=== PATIENT | male | born 1945 | race Caucasian/White ===

== ENCOUNTER → 2023-06-13 14:56 | Outpatient (REF) | payer MEDICARE, OTHER, SELFPAY ==
[2023-06-13 15:49] LABS: % Basophils 0.7 % (0-2); % Eosinophils 3.6 % (0-6); % Immature Granulocytes 0.1 % (0-0.5); % Lymphocytes 17.5 % (20.5-51.1); % Monocytes 8.7 % (1.7-9.3); % Neutrophils 69.4 % (42.2-75.2); Absolute Basophils 0.1 10^3/uL (0-0.2); Absolute Eosinophils 0.2 10^3/uL (0-0.7); Absolute Lymphocytes 1.2 10^3/uL (1.2-3.4); Absolute Monocytes 0.6 10^3/uL (0.1-0.6); Absolute Neutrophils 4.7 10^3/uL (1.4-6.5); Hematocrit 41.9 % (39.0-52.0); Hemoglobin 14.2 g/dL (13.0-18.0); Mean Corp Hgb Conc. 33.9 g/dL (33.0-37.0); Mean Corpuscular Hgb 30.2 pg (27.0-31.0); Mean Corpuscular Volume 89.1 fL (80.0-94.0); Mean Platelet Volume 12.5 fL (7.4-10.4); Nucleated Red Blood Cells % 0 % (-); Platelet Count 153 10^3/uL (130-400); Red Cell Dist. Width 12.3 % (11.5-14.5); White Blood Cell Count 6.8 10^3/uL (4.8-10.8)
[2023-06-13 16:05] LABS: ALT (SGPT) 25 U/L (0-50); AST (SGOT) 35 U/L (17-59); Albumin 4.3 g/dl (3.5-5.0); Alkaline Phosphatase 87 U/L (38-126); Blood Urea Nitrogen 27 mg/dl (9-20); Calcium 9.6 mg/dl (8.4-10.2); Carbon Dioxide 26 mmol/L (22-30); Chloride 105 mmol/L (98-107); Glucose 91 mg/dl (70-99); Sodium 140 mmol/L (135-145); Total Bilirubin 0.8 mg/dl (0.2-1.3); Total Protein 6.9 g/dl (6.3-8.2); eGFR 52.09
[2023-06-13 16:10] LABS: Potassium 4.5 mmol/L (3.5-5.1)
[2023-06-13 16:21] LABS: Free T4 0.78 ng/dl (0.78-2.19); Vitamin D, 25-OH*** 36.1 ng/mL (30-80)
[2023-06-13 17:03] LABS: Free T3 3.91 pg/ml (2.77-5.27)
[2023-06-13 17:17] LABS: PSA, Total - Screen 5.98 ng/ml (0.0-4.0)
[2023-06-16 05:01] LABS: IGF-1 Z Score Calculation 1.6; Insulin-like Growth Factor I 200 ng/mL (22-212)
[2023-06-16 06:28] LABS: DHEA Sulfate 97 ug/dL (16-123)
[2023-06-16 06:29] LABS: % Free Testosterone 1.1 % (1.6-2.9); Free Testosterone 67 pg/mL (47-244); Sex Hormone Binding Globulin 74 nmol/L (19-76); Total Testosterone 586 ng/dL (300-720)
== END ==
LOC: REG 14:56
PROVIDERS: ATTENDING PHYSICIAN Family Medicine Sports Medicine; FAMILY PHYSICIAN Family Medicine
DX: E29.1 Testicular hypofunction (principal); R53.83 Other fatigue; E55.9 Vitamin D deficiency, unspecified; Z12.5 Encounter for screening for malignant neoplasm of prostate
CPT/HCPCS: 36415; 80053; 82306; 82627; 84270; 84305; 84402; 84403; 84439; 84443; 84481; 85025; G0103

== ENCOUNTER → 2023-08-03 15:21 | Outpatient (REF) | payer MEDICARE, OTHER, SELFPAY ==
[2023-08-03 16:12] LABS: % Basophils 0.7 % (0-2); % Eosinophils 3.6 % (0-6); % Immature Granulocytes 0.2 % (0-0.5); % Lymphocytes 19.8 % (20.5-51.1); % Neutrophils 63.7 % (42.2-75.2); Absolute Eosinophils 0.2 10^3/uL (0-0.7); Absolute Lymphocytes 1.1 10^3/uL (1.2-3.4); Absolute Monocytes 0.7 10^3/uL (0.1-0.6); Absolute Neutrophils 3.5 10^3/uL (1.4-6.5); Hematocrit 46.1 % (39.0-52.0); Hemoglobin 14.7 g/dL (13.0-18.0); Mean Corp Hgb Conc. 31.9 g/dL (33.0-37.0); Mean Corpuscular Hgb 29.9 pg (27.0-31.0); Mean Corpuscular Volume 93.7 fL (80.0-94.0); Mean Platelet Volume 12.8 fL (7.4-10.4); Nucleated Red Blood Cells % 0 % (-); Platelet Count 145 10^3/uL (130-400); Red Blood Cell Count 4.92 10^6/uL (4.70-6.10); Red Cell Dist. Width 13.3 % (11.5-14.5); White Blood Cell Count 5.5 10^3/uL (4.8-10.8)
[2023-08-03 16:27] LABS: ALT (SGPT) 20 U/L (0-50); AST (SGOT) 32 U/L (17-59); Albumin 3.9 g/dl (3.5-5.0); Alkaline Phosphatase 82 U/L (38-126); Blood Urea Nitrogen 20 mg/dl (9-20); Calcium 9.3 mg/dl (8.4-10.2); Carbon Dioxide 28 mmol/L (22-30); Chloride 106 mmol/L (98-107); Glucose 111 mg/dl (70-99); Potassium 4.7 mmol/L (3.5-5.1); Sodium 141 mmol/L (135-145); Total Protein 6.5 g/dl (6.3-8.2); eGFR 56.93
[2023-08-03 16:44] LABS: Free T3 4.27 pg/ml (2.77-5.27); Free T4 0.84 ng/dl (0.78-2.19)
[2023-08-03 16:57] LABS: PSA, Total - Screen 7.33 ng/ml (0.0-4.0); TSH 1.15 uIU/ml (0.47-4.68)
[2023-08-05 15:38] LABS: Estriol <0.20 ng/mL
[2023-08-05 18:35] LABS: % Free Testosterone 1.3 % (1.6-2.9); Free Testosterone 196 pg/mL (47-244); Sex Hormone Binding Globulin 80 nmol/L (19-76); Total Testosterone 1480 ng/dL (300-720)
[2023-08-05 22:58] LABS: DHEA Sulfate 131 ug/dL (16-123)
== END ==
LOC: REG 15:21
PROVIDERS: ATTENDING PHYSICIAN Family Medicine Sports Medicine; FAMILY PHYSICIAN Family Medicine
DX: E29.1 Testicular hypofunction (principal); R53.83 Other fatigue; Z12.5 Encounter for screening for malignant neoplasm of prostate
CPT/HCPCS: 36415; 80053; 82627; 82677; 84270; 84402; 84403; 84439; 84443; 84481; 85025; G0103

== ENCOUNTER → 2023-08-15 16:44 | Outpatient (REF) | payer MEDICARE, OTHER, SELFPAY | LOC: RAD 16:44 | PROVIDERS: ATTENDING PHYSICIAN Family Medicine | DX: J45.40 Moderate persistent asthma, uncomplicated (principal); R05.1 Acute cough | CPT/HCPCS: 71046 ==

== ENCOUNTER → 2023-11-12 11:20 | Outpatient (REF) | payer MEDICARE, OTHER, SELFPAY ==
[2023-11-12 12:30] LABS: % Basophils 0.8 % (0-2); % Eosinophils 3.6 % (0-6); % Immature Granulocytes 0.2 % (0-0.5); % Monocytes 9.4 % (1.7-9.3); Absolute Basophils 0.1 10^3/uL (0-0.2); Absolute Eosinophils 0.2 10^3/uL (0-0.7); Absolute Lymphocytes 1.1 10^3/uL (1.2-3.4); Absolute Monocytes 0.6 10^3/uL (0.1-0.6); Absolute Neutrophils 4.1 10^3/uL (1.4-6.5); Hematocrit 49.2 % (39.0-52.0); Hemoglobin 16.4 g/dL (13.0-18.0); Mean Corp Hgb Conc. 33.3 g/dL (33.0-37.0); Mean Corpuscular Hgb 30.3 pg (27.0-31.0); Mean Corpuscular Volume 90.9 fL (80.0-94.0); Mean Platelet Volume 12.9 fL (7.4-10.4); Nucleated Red Blood Cells % 0 % (-); Platelet Count 138 10^3/uL (130-400); Red Blood Cell Count 5.41 10^6/uL (4.70-6.10); White Blood Cell Count 6.1 10^3/uL (4.8-10.8)
[2023-11-12 12:57] LABS: ALT (SGPT) 16 U/L (0-50); AST (SGOT) 29 U/L (17-59); Alkaline Phosphatase 76 U/L (38-126); Blood Urea Nitrogen 26 mg/dl (9-20); Calcium 9.6 mg/dl (8.4-10.2); Carbon Dioxide 25 mmol/L (22-30); Chloride 105 mmol/L (98-107); Glucose 90 mg/dl (70-99); Potassium 4.6 mmol/L (3.5-5.1); Sodium 143 mmol/L (135-145); Total Bilirubin 1.1 mg/dl (0.2-1.3); Total Protein 6.6 g/dl (6.3-8.2); eGFR 56.93
[2023-11-12 13:15] LABS: Free T3 4.09 pg/ml (2.77-5.27); Vitamin D, 25-OH*** 39.9 ng/mL (30-80)
[2023-11-12 13:28] LABS: PSA, Total - Screen 6.87 ng/ml (0.0-4.0); TSH Reflex To Free T4 0.97 uIU/ml (0.47-4.68)
[2023-11-14 21:52] LABS: DHEA Sulfate 135 ug/dL (16-123)
[2023-11-14 21:53] LABS: % Free Testosterone 1.1 % (1.6-2.9); Free Testosterone 41 pg/mL (47-244); Sex Hormone Binding Globulin 70 nmol/L (19-76); Total Testosterone 362 ng/dL (300-720)
[2023-11-15 03:55] LABS: IGF-1 Z Score Calculation 1.3; Insulin-like Growth Factor I 175 ng/mL (21-204)
== END ==
LOC: REG 11:20
PROVIDERS: ATTENDING PHYSICIAN Family Medicine Sports Medicine; FAMILY PHYSICIAN Family Medicine
DX: E29.1 Testicular hypofunction (principal); R53.83 Other fatigue; E55.9 Vitamin D deficiency, unspecified; Z12.5 Encounter for screening for malignant neoplasm of prostate
CPT/HCPCS: 36415; 80053; 82306; 82627; 84270; 84305; 84402; 84403; 84443; 84481; 85025; G0103

== ENCOUNTER → 2024-02-10 13:46 | Outpatient (REF) | payer MEDICARE, OTHER, SELFPAY ==
[2024-02-10 17:21] LABS: % Basophils 0.9 % (0-2); % Eosinophils 3.1 % (0-6); % Immature Granulocytes 1.3 % (0-0.5); % Lymphocytes 18.2 % (20.5-51.1); % Monocytes 13.1 % (1.7-9.3); % Neutrophils 63.4 % (42.2-75.2); Absolute Basophils 0.1 10^3/uL (0-0.2); Absolute Eosinophils 0.2 10^3/uL (0-0.7); Absolute Immature Granulocytes 0.1 10^3/uL (0-0.05); Absolute Monocytes 0.7 10^3/uL (0.1-0.6); Absolute Neutrophils 3.5 10^3/uL (1.4-6.5); Hematocrit 51.1 % (39.0-52.0); Hemoglobin 16.7 g/dL (13.0-18.0); Mean Corp Hgb Conc. 32.7 g/dL (33.0-37.0); Mean Corpuscular Hgb 30.2 pg (27.0-31.0); Mean Corpuscular Volume 92.4 fL (80.0-94.0); Nucleated Red Blood Cells % 0 % (-); Platelet Count 145 10^3/uL (130-400); Red Blood Cell Count 5.53 10^6/uL (4.70-6.10); Red Cell Dist. Width 13.5 % (11.5-14.5); White Blood Cell Count 5.5 10^3/uL (4.8-10.8)
[2024-02-13 02:44] LABS: % Free Testosterone 1.3 % (1.6-2.9); Free Testosterone 107 pg/mL (47-244); Sex Hormone Binding Globulin 69 nmol/L (19-76); Testosterone, Bioavailable 293 ng/dL (131-682); Total Testosterone 833 ng/dL (300-720)
== END ==
LOC: REG 13:46
PROVIDERS: ATTENDING PHYSICIAN Family Medicine Sports Medicine; FAMILY PHYSICIAN Family Medicine
DX: E29.1 Testicular hypofunction (principal)
CPT/HCPCS: 36415; 84270; 84402; 84403; 85025

== ENCOUNTER → 2024-04-23 10:29 | Outpatient (REF) | payer MEDICARE, OTHER, SELFPAY ==
[2024-04-23 11:57] LABS: Hematocrit 49.8 % (39.0-52.0); Hemoglobin 16.6 g/dL (13.0-18.0); Mean Corp Hgb Conc. 33.3 g/dL (33.0-37.0); Mean Corpuscular Hgb 30.5 pg (27.0-31.0); Mean Corpuscular Volume 91.4 fL (80.0-94.0); Mean Platelet Volume 12.8 fL (7.4-10.4); Platelet Count 151 10^3/uL (130-400); Red Blood Cell Count 5.45 10^6/uL (4.70-6.10); Red Cell Dist. Width 12.3 % (11.5-14.5); White Blood Cell Count 10.6 10^3/uL (4.8-10.8)
[2024-04-23 12:59] LABS: ALT (SGPT) 14 U/L (0-50); AST (SGOT) 24 U/L (17-59); Albumin 4.7 g/dl (3.5-5.0); Alkaline Phosphatase 103 U/L (38-126); Blood Urea Nitrogen 27 mg/dl (9-20); Calcium 9.8 mg/dl (8.4-10.2); Carbon Dioxide 28 mmol/L (22-30); Chloride 101 mmol/L (98-107); Glucose 96 mg/dl (70-99); HDL Cholesterol 67 mg/dl; LDL Cholesterol, Calculated 65 mg/dl; Potassium 4.8 mmol/L (3.5-5.1); Sodium 140 mmol/L (135-145); Total Bilirubin 1.6 mg/dl (0.2-1.3); Total Cholesterol 143 mg/dl (50-199); Total Protein 7.5 g/dl (6.3-8.2); Triglyceride 56 mg/dl (10-149); Very Low Density Lipoprotein 11 mg/dl (0-30); eGFR 51.77
[2024-04-23 13:25] LABS: PSA, Total - Screen 8.32 ng/ml (0.0-4.0); TSH 1.21 uIU/ml (0.47-4.68)
== END ==
LOC: REG 10:29
PROVIDERS: ATTENDING PHYSICIAN Family Medicine
DX: R05.3 Chronic cough (principal); R06.2 Wheezing; I25.10 Atherosclerotic heart disease of native coronary artery without angina pectoris; I10 Essential (primary) hypertension; E78.2 Mixed hyperlipidemia; J45.40 Moderate persistent asthma, uncomplicated; N52.9 Male erectile dysfunction, unspecified; R97.20 Elevated prostate specific antigen [PSA]; Z12.5 Encounter for screening for malignant neoplasm of prostate
CPT/HCPCS: 36415; 80053; 80061; 84443; 85027; G0103

== ENCOUNTER → 2024-04-30 13:54 | Outpatient (REF) | payer MEDICARE, OTHER, SELFPAY | LOC: RAD 13:54 | PROVIDERS: ATTENDING PHYSICIAN Family Medicine | DX: R05.3 Chronic cough (principal); R06.2 Wheezing | CPT/HCPCS: 71270; Q9967 ==

== ENCOUNTER 2024-09-15 21:18 | Inpatient (IN) | payer MEDICARE, OTHER, SELFPAY ==
[2024-09-15 13:33] VITALS: BP 154/73
[2024-09-15 13:57] LABS: Urine Character Clear (Clear)
[2024-09-15 14:02] LABS: Hematocrit 44.5 % (39.0-52.0); Hemoglobin 15.2 g/dL (13.0-18.0); Mean Corp Hgb Conc. 34.2 g/dL (33.0-37.0); Mean Corpuscular Volume 88.1 fL (80.0-94.0); Nucleated Red Blood Cells % 0 % (-); Red Cell Dist. Width 13.3 % (11.5-14.5)
[2024-09-15 14:16] LABS: ALT (SGPT) 61 U/L (0-50); AST (SGOT) 51 U/L (17-59); Albumin 4.1 g/dl (3.5-5.0); Alkaline Phosphatase 89 U/L (38-126); Blood Urea Nitrogen 28 mg/dl (9-20); Calcium 9.0 mg/dl (8.4-10.2); Carbon Dioxide 27 mmol/L (22-30); Chloride 103 mmol/L (98-107); Glucose 122 mg/dl (70-99); Lipase 286 U/L (23-300); Potassium 4.5 mmol/L (3.5-5.1); Sodium 135 mmol/L (135-145); Total Protein 7.0 g/dl (6.3-8.2); eGFR > 60.00
[2024-09-15 14:28] LABS: Platelet Count 47 10^3/uL (130-400); Urine Red Blood Cell 0-2 /HPF (0-2); Urine White Cell 0-2 /HPF (0-5)
[2024-09-15 14:29] LABS: Troponin I < 0.012 ng/ml
[2024-09-15 14:41] VITALS: BMI 22.4
--- NOTE | 2024-09-15 15:37 | ED.GENMED ---
History of Present Illness
<DO Andrey Savage Filed: 09/16/24 14:25>
General
Chief Complaint: Chest Pain
Source: patient
Time Seen by Provider: 09/15/24 14:38
History of Present Illness
History of Present Illness:
78-year-old male presents to the emergency room for evaluation of intermittent upper abdominal pain, nausea, belching, malaise and fever. Symptoms began 2 to 3 days ago. Patient has been able to do his normal daily activities which includes
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 He seemed to feel much worse in the evenings and at night. He has severe nausea at times. Patient denies any previous abdominal surgeries. He does not drink alcohol.
Past History
<DO Andrey Savage Filed: 09/16/24 14:25>
Past History
ED Past Medical History: CAD, GERD, HTN and Hypercholesterolemia; Negative IDDM or NIDDM
ED Past Surgical History: Cardiac (CABG 2011)
Social History
Tobacco: Non-smoker
Alcohol: None
Drug: None
Personal:
Living: with family
Employment: Retired
Family History
Family History: Other (Noncontributory)
Phy Exam
<DO Andrey Savage Filed: 09/16/24 14:25>
Physical Exam
Physical Exam:
General: Awake, Alert, Oriented X3. No acute distress.
Vitals: Temperature 100.6 orally
Head: Atraumatic
Eyes: Pupils equal, EOMI
Throat: Airway intact, no exudates
Neck: Trachea midline
Lungs: Clear and equal b/l
Heart: Regular rate, no murmurs
Abd: Soft, no significant tenderness to palpation, No pulsatile mass
Neuro: Nonfocal
Skin: Warm, dry, no rash
Extremities: pulses equal b/l, no edema
Scores
<Arnulfo Musa, DO - Last Filed: 09/15/24 21:36>
Heart Score for Chest Pain Patients
STEMI patient?: Not applicable
Course
<Jose Luevano, DO - Last Filed: 09/16/24 14:25>
Orders/Labs/Results
Orders:
Orders
09/15/24 13:30
EKG [Electrocardiogram (*1)] Urgent
Reason for Study: Chest Pain
09/15/24 13:31
EKG- Treatment ONCE
09/15/24 13:46
Complete Blood Count/With Diff Urgent
Comprehensive Metabolic Panel Urgent
Lipase Urgent
Troponin I Urgent
Urinalysis Reflex To Culture Urgent
Date Specimen was Collected: 09/15/24
Time Specimen was Collected: 13:37
Urine Microscopic Reflex Cult Urgent
09/15/24 15:36
US Abdomen Complete/Upper Urgent
Comment:
Reason For Exam: upper abd pain, elevated bili, fever
09/15/24 15:37
Acetaminophen [Tylenol] 1,000 mg PO NOW STA
09/15/24 15:40
0.9% Sodium Chloride 500 ml [Nss] 500 ml IV BOLUS
09/15/24 20:12
LevoFLOXacin 500 MG/100 ML [Levaquin] 500 mg in 100 ml IV NOW
MetroNIDAZOLE 500 MG/100 ML [Flagyl 500 mg] 100 ml IV NOW
09/15/24 21:02
Admit/Transfer Patient As Directed
Co-Sign Provider:
Level of Care: Inpatient admission
Assign to:: Telemetry
Physician / Group: Aidan
Diagnosis: Fever
Reason for Telemetry: Chest Pain syndromes
Date to Stop Telemetry: 09/17/24
Time to Stop Telemetry: 11:00
Reason for Hospitalization: Fever
Expected length of stay greater than two midnights?: Yes
ELOS- Estimated Length of Stay in days: 3
I certify the patient meets the requirements for IP care: Yes
PRN Pain Medication Management As Directed
May give lesser potent ordered pain med per pt: Yes
preference::
Protocol:: Medication orders for pain may be administered in a
manner that supports deferring to patient preference
when the pt is:
- Requesting an ordered lesser potent pain medication.
Least to most potent pain medications are defined
as: acetaminophen < NSAID < tramadol < opioids
(morphine, oxycodone, hydromorphone).
- Requesting a lesser dose of the same medication IF
ORDERED.
- Requesting a less intrusive route of administration
if both routes are prescribed by the provider (PO <
IV).
09/15/24 21:03
Code Status As Directed
Resuscitation Status: Full Code
09/15/24 21:09
CXR2 [CR Chest - 2 Views ] Urgent
Comment:
Reason For Exam: Fever, Chest pain
09/15/24 21:12
Blood Culture Q30M
MARY Source: Blood/Venous
Specimen Description:
Blood Culture Q30M
MARY Source: Blood/Venous
Specimen Description:
Blood Parasites Urgent
MARY Source: Blood/Venous
Specimen Description:
09/15/24 22:08
Ondansetron Injectable [Zofran] 4 mg IV Q6HPRN PRN
09/15/24 22:15
Acetaminophen [Tylenol] 650 mg PO Q4HPRN PRN
09/15/24 23:03
Troponin I Q6H
0.9% Sodium Chloride 1000 ml [Nss] 1,000 ml IV 80 mls/hr
09/15/24 23:03
TSH Reflex To Free T4 Routine
Activity As Directed
Activity Level: Ambulate
Bladder Scan As Directed
Follow Bladder Retention/Intermittent Cath Algorithm?: Yes
PRN if no void in __ hours: 6
Frequency: Per Retention Algorithm
If Bladder Scan Result >: 400
then:: Straight cath
EKG with chest pain [ECG as needed] As Directed
ECG as needed for:: Chest Pain
I/O [Intake/ Output] As Directed
Frequency: Per unit guidelines
Pneumatic Compression Sleeves As Directed
Type: Knee high
Straight Cath As Directed
Frequency: Per Retention Algorithm
Additional Instructions: straight cath as needed per acute urinary retention algorithm for 24 hrs
Additional Instructions: for bladder scan greater than 400 mL
Vital Signs As Directed
Frequency: Per unit guidelines
Weight As Directed
Frequency: Daily
Oxygen Therapy [O2 Therapy] [RESP] Routine
Titrate/Wean O2 to maintain O2 sat greater than (%): 94
DX Deep Vein Thrombosis Video Routine
09/16/24 04:13
Cardiovascular Evaluation IN AM
Complete Blood Count/No Diff IN AM
09/16/24 06:00
EKG [Electrocardiogram (*1)] IN AM
Reason for Study: Chest Pain
09/16/24 08:00
Amlodipine [Norvasc] 10 mg PO DAILY
Aspirin Low Dose EC [Aspir Low (Enteric Coated)] 81 mg PO DAILY
Pantoprazole [Protonix] 40 mg PO DAILY
09/16/24 10:01
Troponin I Q6H
09/16/24 16:15
Troponin I Q6H
09/17/24 11:00
DC Protocol for Telemetry ONCE
Abnormal Lab Results
09/15/24
13:46
Plt Count 47 L 10^3/uL
(130-400)
MPV 12.3 H fL
(7.4-10.4)
Absolute Lymphs (auto) 0.6 L 10^3/uL
(1.2-3.4)
Absolute Monos (auto) 0.9 H 10^3/uL
(0.1-0.6)
Lymphocytes % 11.2 L %
(20.5-51.1)
Monocytes % 16.7 H %
(1.7-9.3)
BUN 28 H mg/dl
(9-20)
Glucose 122 H mg/dl
(70-99)
Total Bilirubin 2.9 H mg/dl
(0.2-1.3)
ALT 61 H U/L
(0-50)
Urine Urobilinogen 2+ A
(Neg - 1+)
Urine Albumin (Reflex) 3+ A
(Neg - Trace)
09/15/24 13:46
09/15/24 13:46
Vital Signs
Initial and Last Documented VS:
Initial Vital Signs
Temp Pulse Resp BP Pulse Ox
99.3 F 84 16 154/73 98
09/15/24 13:33 09/15/24 13:33 09/15/24 13:33 09/15/24 13:33 09/15/24 13:33
Last Documented Vital Signs
Temp Pulse Resp BP Pulse Ox
99.2 F 79 16 144/74 96
09/16/24 14:14 09/16/24 14:14 09/16/24 14:14 09/16/24 14:14 09/16/24 14:14
<Arnulfo Musa, DO - Last Filed: 09/15/24 21:36>
Orders/Labs/Results
Orders:
Orders
09/15/24 13:30
EKG [Electrocardiogram (*1)] Urgent
Reason for Study: Chest Pain
09/15/24 13:31
EKG- Treatment ONCE
09/15/24 13:46
Complete Blood Count/With Diff Urgent
Comprehensive Metabolic Panel Urgent
Lipase Urgent
Troponin I Urgent
Urinalysis Reflex To Culture Urgent
Date Specimen was Collected: 09/15/24
Time Specimen was Collected: 13:37
Urine Microscopic Reflex Cult Urgent
09/15/24 15:36
US Abdomen Complete/Upper Urgent
Comment:
Reason For Exam: upper abd pain, elevated bili, fever
09/15/24 15:37
Acetaminophen [Tylenol] 1,000 mg PO NOW STA
09/15/24 15:40
0.9% Sodium Chloride 500 ml [Nss] 500 ml IV BOLUS
09/15/24 20:12
LevoFLOXacin 500 MG/100 ML [Levaquin] 500 mg in 100 ml IV NOW
MetroNIDAZOLE 500 MG/100 ML [Flagyl 500 mg] 100 ml IV NOW
09/15/24 21:02
Admit/Transfer Patient As Directed
Co-Sign Provider:
Level of Care: Inpatient admission
Assign to:: Telemetry
Physician / Group: Aidan
Diagnosis: Fever
Reason for Telemetry: Chest Pain syndromes
Date to Stop Telemetry: 09/17/24
Time to Stop Telemetry: 11:00
Reason for Hospitalization: Fever
Expected length of stay greater than two midnights?: Yes
ELOS- Estimated Length of Stay in days: 3
I certify the patient meets the requirements for IP care: Yes
PRN Pain Medication Management As Directed
May give lesser potent ordered pain med per pt: Yes
preference::
Protocol:: Medication orders for pain may be administered in a
manner that supports deferring to patient preference
when the pt is:
- Requesting an ordered lesser potent pain medication.
Least to most potent pain medications are defined
as: acetaminophen < NSAID < tramadol < opioids
(morphine, oxycodone, hydromorphone).
- Requesting a lesser dose of the same medication IF
ORDERED.
- Requesting a less intrusive route of administration
if both routes are prescribed by the provider (PO <
IV).
09/15/24 21:03
Code Status As Directed
Resuscitation Status: Full Code
09/15/24 21:09
CXR2 [CR Chest - 2 Views ] Urgent
Comment:
Reason For Exam: Fever, Chest pain
09/15/24 21:12
Blood Culture Q30M
MARY Source: Blood/Venous
Specimen Description:
Blood Culture Q30M
MARY Source: Blood/Venous
Specimen Description:
Blood Parasites Urgent
MARY Source: Blood/Venous
Specimen Description:
09/15/24 22:08
Ondansetron Injectable [Zofran] 4 mg IV Q6HPRN PRN
09/15/24 22:15
Acetaminophen [Tylenol] 650 mg PO Q4HPRN PRN
09/15/24 23:03
Troponin I Q6H
0.9% Sodium Chloride 1000 ml [Nss] 1,000 ml IV 80 mls/hr
09/15/24 23:03
TSH Reflex To Free T4 Routine
Activity As Directed
Activity Level: Ambulate
Bladder Scan As Directed
Follow Bladder Retention/Intermittent Cath Algorithm?: Yes
PRN if no void in __ hours: 6
Frequency: Per Retention Algorithm
If Bladder Scan Result >: 400
then:: Straight cath
EKG with chest pain [ECG as needed] As Directed
ECG as needed for:: Chest Pain
I/O [Intake/ Output] As Directed
Frequency: Per unit guidelines
Pneumatic Compression Sleeves As Directed
Type: Knee high
Straight Cath As Directed
Frequency: Per Retention Algorithm
Additional Instructions: straight cath as needed per acute urinary retention algorithm for 24 hrs
Additional Instructions: for bladder scan greater than 400 mL
Vital Signs As Directed
Frequency: Per unit guidelines
Weight As Directed
Frequency: Daily
Oxygen Therapy [O2 Therapy] [RESP] Routine
Titrate/Wean O2 to maintain O2 sat greater than (%): 94
DX Deep Vein Thrombosis Video Routine
09/16/24 04:13
Cardiovascular Evaluation IN AM
Complete Blood Count/No Diff IN AM
09/16/24 06:00
EKG [Electrocardiogram (*1)] IN AM
Reason for Study: Chest Pain
09/16/24 08:00
Amlodipine [Norvasc] 10 mg PO DAILY
Aspirin Low Dose EC [Aspir Low (Enteric Coated)] 81 mg PO DAILY
Pantoprazole [Protonix] 40 mg PO DAILY
09/16/24 10:01
Troponin I Q6H
09/16/24 16:15
Troponin I Q6H
09/17/24 11:00
DC Protocol for Telemetry ONCE
Abnormal Lab Results
09/15/24
13:46
Plt Count 47 L 10^3/uL
(130-400)
MPV 12.3 H fL
(7.4-10.4)
Absolute Lymphs (auto) 0.6 L 10^3/uL
(1.2-3.4)
Absolute Monos (auto) 0.9 H 10^3/uL
(0.1-0.6)
Lymphocytes % 11.2 L %
(20.5-51.1)
Monocytes % 16.7 H %
(1.7-9.3)
BUN 28 H mg/dl
(9-20)
Glucose 122 H mg/dl
(70-99)
Total Bilirubin 2.9 H mg/dl
(0.2-1.3)
ALT 61 H U/L
(0-50)
Urine Urobilinogen 2+ A
(Neg - 1+)
Urine Albumin (Reflex) 3+ A
(Neg - Trace)
09/15/24 13:46
09/15/24 13:46
Vital Signs
Initial and Last Documented VS:
Initial Vital Signs
Temp Pulse Resp BP Pulse Ox
99.3 F 84 16 154/73 98
09/15/24 13:33 09/15/24 13:33 09/15/24 13:33 09/15/24 13:33 09/15/24 13:33
Last Documented Vital Signs
Temp Pulse Resp BP Pulse Ox
99.2 F 79 16 144/74 96
09/16/24 14:14 09/16/24 14:14 09/16/24 14:14 09/16/24 14:14 09/16/24 14:14
<Arnulfo Musa, DO - Last Filed: 09/15/24 21:36>
MDM/Problems Addressed
Differential Diagnosis Includes:
Pancreatitis, common bile duct stone
MDM/Problems Addressed:
78-year-old male received signout in anticipation of abdominal ultrasound. Bilirubin elevated, patient with fevers. Dilated common bile duct on ultrasound. Levaquin and Flagyl given, admit for further workup to possibly include MRCP/ERCP.
Patient stable at this time.
<Jose Luevano DO - Last Filed: 09/16/24 14:25>
*Pulse Oximetry
SaO2: 94
Oxygen Mode of Delivery: Room air
Patient hypoxic: no
*EKG
Interpreted by ED Provider?: Yes
Heart Rate: 76
Rate: normal
Rhythm: sinus
[place]: normal axis
Interval: normal interval
QRS Pattern: right bundle branch block (paritial)
Ischemia: no ischemia
<Arnulfo Musa, DO - Last Filed: 09/15/24 21:36>
*Radiology
Radiology exam reviewed: radiology read reviewed (Ultrasound shows dilated common bile duct)
*Critical Care Note
Total Time (30-74mins, 75-104mins- exclusive of procedures): Not Applicable
ED Attending Note
<Jose Luevano DO - Last Filed: 09/16/24 14:25>
-
Portions of this chart may have been created with voice recognition software.� Occasional wrong word or��sound alike� substitutions may have occurred due to the inherent limitations of voice recognition software.
Discharge Plan
Departure
Patient Disposition: Admit
Date of Disposition: 09/15/24
Time of Disposition: 20:25
Admit to: Med/Surg
Presentation/result/management discussed w/ accepting MD/DO: Hospitalist
Patient with high blood pressure during this ER visit?: Yes
Condition: Fair
Discharge Problem:
Fever, Common bile duct dilatation, Hyperbilirubinemia
Interventions
Interventions:
*Risk Screen - Suicide Last Done: 09/15/24 13:33
*General Assessment Last Done: 09/15/24 16:43
*Neglect/Abuse Screening Last Done: 09/15/24 13:33
*ED- Fall Risk Assessment Last Done: 09/15/24 16:43
*ED COVID-19 Vaccine History Last Done: 09/15/24 23:11
*Nursing Disposition Last Done: 09/15/24 23:03
ED- Cardiac Assessment Last Done: 09/15/24 14:49
Discharge Date and Time
Discharge Date/Time: 09/15/24 23:03
[2024-09-15] MEDS: TYLENOL 1000 MG PO (15:40)
[2024-09-15] MEDS: NSS 500 IV (15:50)
[2024-09-15] MEDS: LEVAQUIN 100 IV (20:54)
[2024-09-15] MEDS: FLAGYL 500 MG 100 IV (20:54)
--- NOTE | 2024-09-15 21:08 | HPS.HSE ---
Family Physician
-
Family Physician: Noah See
Chief Complaint
-
Fever, Chest Pain, Nausea
History of Present Illness
Patient is a 78y M with PMH significant for ASCVD and hypertension who presents to ED complaining of multiple complaints. Patient states that he has been having intermittent fevers at home - mostly at night. Temperature has been as high as
101.5. Patient also reports generalized abdominal discomfort associated with increased flatus, audible bowel sounds and mild constipation. He has had nausea, but no vomiting. He states that these symptoms have been occurring off-and-on for
several weeks. Tuesday evening he woke in the middle of the night with severe nausea. His gave him a Zofran and his symptoms improved. He was able to go to work the following day.
Last night, he again woke in the middle of the night. This time with sensation of 'an elephant sitting on my chest'.
Today he decided to present to the ED for further evaluation of these ongoing symptoms.
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
He denies any joint pains, rashes or skin lesions.
Note that patient has unreliable sense of time. It is unclear how long his current symptoms have been present though he states '3-4 weeks'.
He notes that he had a CT done here 'about 3 weeks ago'. This was done in April.
He states that he received a new cholesterol medication 'about 3-4 weeks ago'. This was started in June.
Medical History
Past Medical History
Past Medical History: Reports Other
Additional Past Medical History:
ASCVD
Hypertension
CKD III
GERD
Past Surgical History: Reports Other
Additional Past Surgical History:
CABG
PTCA with Stent
Social History
Tobacco: Non-smoker
Alcohol: None
Drug: None
Family History
Family History: Not pertinent
Allergies / Home Medications
Allergies reflects when Allergies were last updated in [facility].
Home Medications with original date entered in [facility]
Allergy/Medication List:
Allergies
Allergy/AdvReac Type Severity Reaction Status Date / Time
oxycodone HCl (From Percocet) Allergy hallucinating, Verified 09/15/24 13:36
paranoid
Penicillins Allergy Unknown Verified 09/15/24 13:36
Home Medications
aspirin 81 mg tablet,delayed release 81 mg PO DAILY Blood clot prevention/tx #30 tabs 04/03/21
atorvastatin 80 mg tablet 80 mg PO QPM #30 tabs 04/03/21
pantoprazole 40 mg tablet,delayed release 40 mg PO DAILY #30 tabs 04/03/21
coenzyme [id number] E 100 mg-100 unit capsule 1 cap PO DAILY 04/25/21
amlodipine 5 mg tablet 10 mg PO DAILY 09/15/24
ezetimibe 10 mg tablet 10 mg PO DAILY 09/15/24
tadalafil 5 mg tablet 5 mg PO DAILY PRN ED 09/15/24
Review of Systems
-
History Source: Patient
A 12 point ROS was completed and negative except as noted: Yes
Constitutional: Reports Fever and Fatigue; Denies Chills
EENT: Denies Sore Throat
Respiratory: Denies Cough or Trouble Breathing
Cardiac: Reports Chest Pain; Denies Palpitations or Syncope
Abdomen/GI: Reports Abdominal Pain, Nausea and Constipated; Denies Vomiting, Diarrhea, Bloody Stools or Black Stools
: Reports Dark Urine; Denies Dysuria or Frequency
Musculoskeletal: Denies Joint Pain, Muscle Pain or Edema
Neurological: Denies Dizzy or Headache
Psych: Denies Depression or Anxiety
Physical Exam
Vital Signs
Vital Signs
Temp Pulse Resp BP Pulse Ox
99.6 F 68 27 154/73 95
09/15/24 17:04 09/15/24 19:45 09/15/24 19:45 09/15/24 13:33 09/15/24 18:45
Physical Exam
General: Other (78y M in no acute distress.)
HEENT: Moist mucous membranes and PERRLA
Respiratory: Clear; No Wheezes, Rales or Rhonchi
Cardiac: S1/S2 and Regular Rhythm; No Murmur
GI: Soft, Non Tender, Non Distended and Normal Bowel Sounds
Musculoskeletal: No Clubbing, No Cyanosis and No Edema
Neuro: AO x 3
Laboratory Results
-
09/15/24 13:46
09/15/24 13:46
Laboratory Results
Total Bilirubin 2.9 mg/dl (0.2-1.3) H 09/15/24 13:46
AST 51 U/L (17-59) 09/15/24 13:46
ALT 61 U/L (0-50) H 09/15/24 13:46
Alkaline Phosphatase 89 U/L (38-126) 09/15/24 13:46
Troponin I < 0.012 ng/ml 09/15/24 13:46
Lipase 286 U/L (23-300) 09/15/24 13:46
Impression/Plan
-
A/P: 78y M with PMH significant for ASCVD and hypertension presents with several weeks of nausea, fevers, chest pains, etc.
Chest Pain
ASCVD
- Admit for further evaluation and treatment.
- Other symptoms aside, patient woke last PM with crushing substernal chest pain and 'elephant on my chest' feeling.
- EKG without evident acute ischemia. Initial troponin is undetectable.
- Pain-free at present.
- Monitor on telemetry.
- Follow serial troponin.
- Follow for any new / recurrent chest discomfort.
- Continue ASA.
- Cardiology evaluation if elevated troponin, recurrent chest pain, etc.
Febrile Illness
Thrombocytopenia
Abnormal LFTs
- Unclear etiology at present. Vague symptoms (nausea, audible bowel sounds / 'rumbling').
- No rash / myalgias, arthralgias , etc.
- US done in the ED with mild intra-hepatic duct dilation without CBD dilation, GB abnormality, etc.
- Levaquin / Flagyl given in the ED. Continue with cefepime / metronidazole for now - though source is unclear.
- With tick exposure and fever / thrombocytopenia - will check parasite smear.
- GI evaluation re: ductal dilation. ? MRCP.
- ID evaluation for additional recommendations.
Benign Hypertension
- Stable. Continue current med regimen with holding parameters.
CKD III
- Stable. Renal function is at / near known baseline.
- Follow for changes.
DVT Prophylaxis: SCDs
Code Status: Full
[2024-09-15] MEDS: ZOFRAN 4 MG IV (22:13)
[2024-09-15] MEDS: TYLENOL 650 MG PO (22:36)
[2024-09-15 23:00] VITALS: BP 147/73; BMI 22.2
[2024-09-16] MEDS: NSS 1000 IV ×2 (00:16→14:15)
[2024-09-16] MEDS: BENADRYL 25 MG PO (00:42)
[2024-09-16 03:10] VITALS: BP 129/67
[2024-09-16] MEDS: TYLENOL 650 MG PO ×4 (04:13→22:56)
[2024-09-16 04:35] LABS: Hematocrit 44.9 % (39.0-52.0); Hemoglobin 15.1 g/dL (13.0-18.0); Mean Corp Hgb Conc. 33.6 g/dL (33.0-37.0); Mean Corpuscular Volume 87.5 fL (80.0-94.0); Platelet Count 40 10^3/uL (130-400); Red Cell Dist. Width 13.2 % (11.5-14.5)
[2024-09-16 04:46] LABS: ALT (SGPT) 53 U/L (0-50); AST (SGOT) 42 U/L (17-59); Albumin 3.8 g/dl (3.5-5.0); Alkaline Phosphatase 81 U/L (38-126); Blood Urea Nitrogen 23 mg/dl (9-20); Calcium 8.9 mg/dl (8.4-10.2); Carbon Dioxide 27 mmol/L (22-30); Chloride 105 mmol/L (98-107); Estimated Creatinine Clearance 59 ml/min; Glucose 115 mg/dl (70-99); HDL Cholesterol 24 mg/dl; LDH 341 U/L (120-246); LDL Cholesterol, Calculated 43 mg/dl; Potassium 4.7 mmol/L (3.5-5.1); Sodium 138 mmol/L (135-145); Total Protein 6.7 g/dl (6.3-8.2); Very Low Density Lipoprotein 19 mg/dl (0-30); eGFR > 60.00
[2024-09-16 04:56] LABS: Troponin I 0.013 ng/ml
[2024-09-16] MEDS: STERILE WATER FOR INJECTION 10 ML IV (05:28)
[2024-09-16] MEDS: MAXIPIME 1000 MG IV (05:28)
[2024-09-16] MEDS: FLAGYL 500 MG 100 IV (05:29)
[2024-09-16 06:00] VITALS: BMI 22.1
[2024-09-16 07:24] VITALS: BP 142/105
--- NOTE | 2024-09-16 08:14 | PTCARENOTE ---
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 made aware.
[2024-09-16] MEDS: PROTONIX 40 MG PO (08:30)
[2024-09-16] MEDS: NORVASC 10 MG PO (08:30)
[2024-09-16] MEDS: ASPIR LOW (ENTERIC COATED) 81 MG PO (08:30)
--- NOTE | 2024-09-16 08:51 | CON.GI ---
Consultation
-
Date/Time Consultation Performed: 09/16/24
Performing Provider: Carlito Ji MD
Reason for Consultation: fever, abdominal pain
Medical History
Chief Complaint / HPI
Chief Complaint: fever, abdominal pain
History of Present Illness:
The patient is a 78-year-old male with past medical history as noted presents with fever and other complaints. For some time has been having intermittent fevers as well as general malaise, vague abdominal pains. 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 Usually he has no significant GI issues except chronic heartburn, well-controlled on PPI daily. He has seen a gastrology in the past but does not recall who, and is had endoscopies and colonoscopies which have been unremarkable.
On presentation he was found to have thrombocytopenia, mildly elevated LFTs, and ultrasound with mildly intrahepatic duct dilation. Blood cultures from the 12th did show Babesia species.
Past Medical History
Past Medical History: Other (Coronary artery disease, status post stent, status post CABG, hypertension, renal sufficiency, GERD, high cholesterol)
Past Surgical History: Other (CABG)
Social History
Tobacco: Non-Smoker
Alcohol: None
Family History
Family History: Reviewed & Not Pertinent
Allergies / Home Medications
Allergy/AdvReac Type Severity Reaction Status Date / Time
oxycodone HCl (From Percocet) Allergy hallucinating, Verified 09/15/24 13:36
paranoid
Penicillins Allergy Unknown Verified 09/15/24 13:36
�Medication �Instructions �Recorded
aspirin 81 mg tablet,delayed 81 mg PO DAILY Blood clot 04/03/21
release prevention/tx #30 tabs
atorvastatin 80 mg tablet 80 mg PO QPM #30 tabs 04/03/21
pantoprazole 40 mg tablet,delayed 40 mg PO DAILY #30 tabs 04/03/21
release
coenzyme [id number] E 100 mg-100 1 cap PO DAILY Supplement 04/25/21
unit capsule
amlodipine 5 mg tablet 10 mg PO DAILY Blood Pressure 09/15/24
ezetimibe 10 mg tablet 10 mg PO DAILY High Cholesterol 09/15/24
tadalafil 5 mg tablet 5 mg PO DAILY PRN ED 09/15/24
diphenhydramine HCl 25 mg capsule 25 mg PO HS PRN sleep 09/16/24
(Benadryl)
Review of Systems
-
All other systems: A 12 pt ROS was Negative except as stated above in HPI
Vital Signs
Temp Pulse Resp BP Pulse Ox
98 F 73 12 142/105 98
09/16/24 07:24 09/16/24 08:30 09/16/24 07:24 09/16/24 08:30 09/16/24 07:24
Physical Exam
Exam
General: NAD
HEENT: MMM, anicteric, no lymphadenopathy
Heart: Regular, no murmurs
Lungs: CTA bilaterally
Abdomen: normal bowel sounds, soft, no tenderness, no rebound or guarding, no masses, bruits or ascites
Extremeties: no edema
Skin: no rashes
Results
WBC 4.7 10^3/uL (4.8-10.8) L 09/16/24 04:13
Hgb 15.1 g/dL (13.0-18.0) 09/16/24 04:13
Hct 44.9 % (39.0-52.0) 09/16/24 04:13
MCV 87.5 fL (80.0-94.0) 09/16/24 04:13
Plt Count 40 10^3/uL (130-400) L 09/16/24 04:13
Absolute Neuts (auto) 3.9 10^3/uL (1.4-6.5) 09/15/24 13:46
Sodium 138 mmol/L (135-145) 09/16/24 04:13
Potassium 4.7 mmol/L (3.5-5.1) 09/16/24 04:13
Chloride 105 mmol/L (98-107) 09/16/24 04:13
Carbon Dioxide 27 mmol/L (22-30) 09/16/24 04:13
BUN 23 mg/dl (9-20) H 09/16/24 04:13
Creatinine 1.1 mg/dL (0.7-1.3) 09/16/24 04:13
Calcium 8.9 mg/dl (8.4-10.2) 09/16/24 04:13
Total Bilirubin 3.2 mg/dl (0.2-1.3) H 09/16/24 04:13
AST 42 U/L (17-59) 09/16/24 04:13
ALT 53 U/L (0-50) H 09/16/24 04:13
Alkaline Phosphatase 81 U/L (38-126) 09/16/24 04:13
Lipase 286 U/L (23-300) 09/15/24 13:46
Diagnostic Image Results:
US:
IMPRESSION:
Intrahepatic bile ducts appear to be mildly dilated, nonspecific. No extrahepatic ductal dilatation. No evidence for cholelithiasis.
CT chest 04/2024:
IMPRESSION:
Few small tree-in-bud nodular opacities in the lateral right upper lobe which may be on an inflammatory/infectious basis. Short-term follow-up Chest CT, perhaps in 3-6 months could be obtained.
Suspected large volume coronary artery calcifications.
No significant hilar/mediastinal lymphadenopathy.
Prior GI Procedures:
EGD:
Colonoscopy:
Assessment / Plan
-
1. 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
2. Dilated intrahepatic ducts: Mildly noted on ultrasound, likely incidental, likely not related to his mild elevation of LFTs and thrombocytopenia again related to Babesia. For completeness we will check cross-sectional imaging though other
etiologies such as cholangiocarcinoma seem very unlikely. He is very claustrophobic, and will check CT scan.
-
-
Thank you for consultation and allowing me to participate in the patient's care. Please call the [facility] physician during the after hours with any questions or concerns.
[2024-09-16] MEDS: ZITHROMAX 500 MG PO (09:21)
[2024-09-16] MEDS: MEPRON SUSPENSION 750 MG PO ×2 (09:21→20:04)
[2024-09-16] MEDS: OMNIPAQUE 50 ML PO (09:41)
--- NOTE | 2024-09-16 10:06 | W.PN.HOSP.TC ---
Today's Communication/Plan
-
CT abdomen/pelvis
Continue antibiotics
Recheck labs in the morning
Assessment / Plan
Assessment / Plan
Gen-AAOx3, NAD
HEENT-NC, AT, anicteric, clear oral mm
Neck-supple
CV-reg, no M, +S1/S2
Lungs-clear B/L
Abd-soft, NT, ND
Ext-no edema
Musculoskeletal-no cyanosis, clubbing
Skin-warm and dry
Neuro-grossly non-focal
Psych-calm, cooperative
Babesiosis -presentation with malaise, fever and chills, abdominal discomfort, chest discomfort. Leukopenia, thrombocytopenia and indirect hyperbilirubinemia noted. Mild ALT elevation, alkaline phosphatase elevation.
Blood smear with 1.2% parasitemia.
Abdominal ultrasound with intrahepatic bile duct dilation, mild. CT abdomen/pelvis ordered by GI service.
Patient is vague but states his symptoms have been present for several weeks. Has noted multiple ticks on his skin. 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 Does not consistently use insect repellent. Also wears short-sleeved
clothing and shorts while working outside.
We discussed the importance of tick repellent and longsleeve clothing moving forward to prevent further infections.
Will change antibiotics to Atovaquone and azithromycin.
ID has been consulted.
Advance diet to solids.
Essential hypertension -blood pressure elevated. Recheck after medications.
CAD/CABG -stable. History of stenting.
Hyperlipidemia -at home he is on atorvastatin, ezetimibe. Currently meds on hold for elevated liver enzymes.
GERD
Full code
Anticipated Discharge: Within 24 hours
Subjective/Interval History
-
Date of Service: September 16, 2024
Patient seen and examined. Complaining of malaise.
Objective Data
-
Labs:
Laboratory Results
09/16/24
04:13
WBC 4.7 L
Hgb 15.1
Hct 44.9
Plt Count 40 L
Sodium 138
Potassium 4.7
Chloride 105
Carbon Dioxide 27
BUN 23 H
Creatinine 1.1
Glucose 115 H
Calcium 8.9
Total Bilirubin 3.2 H
AST 42
ALT 53 H
Alkaline Phosphatase 81
Vital Signs:
Vital Signs
Temp Pulse Resp BP Pulse Ox
98 F 73 12 142/105 98
09/16/24 07:24 09/16/24 08:30 09/16/24 07:24 09/16/24 08:30 09/16/24 07:24
I&O
09/15/24 09/16/24 09/17/24
06:59 06:59 06:59
Intake Total 480 / 480
Balance 480 / 480
Review of Systems
-
History Source: Patient
All other systems: Reviewed and negative
[2024-09-16 10:50] LABS: Troponin I 0.013 ng/ml
[2024-09-16 10:56] VITALS: BP 130/68
--- NOTE | 2024-09-16 11:05 | CON.ID ---
Consultation
-
Date/Time Consultation Requested: September 15, 2024 2303
Date/Time Consultation Performed: September 15, 2024 1110
Requesting Provider: Wu Swan
Performing Provider: Dr. Cesia Harrison
Reason for Consultation: Fever, thrombocytopenia, abnormal LFTs
Chief Complaint / Past History
Chief Complaint
Fever,, fatigue, nausea
History of Present Illness
78-year-old male with history of hypertension, CAD who presented to the hospital September 15 with fever, malaise, nausea. He reports several weeks ago he felt unwell with similar symptoms of fever, fatigue, nausea. He went to his PCP who told him he
had pneumonia and treated him with a 5-day course of an antibiotic possibly azithromycin. He felt improved. However this past week he again developed the fever, fatigue, myalgias, nausea, abdominal pain, no diarrhea, no headache, no rash. In the
ER temperature 100.6, platelet count 40, A LT 53, UA negative. Chest x-ray negative. Abdominal ultrasound no cholecystitis. He received metronidazole, levofloxacin, cefepime in the ER. This morning the Babesia smear resulted 1.2%. He is now on
azithromycin and atovaquone. 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 He admits to not using insect repellent consistently. He has had found ticks on himself. Of note July 2014 Lyme IgG Western blot positive, patient
unaware and did not think he was treated.
Past History
Additional Past Medical History:
CAD status post CABG and stents
Hypertension
CKD 3
Allergy History:
oxycodone HCl (From Percocet) Allergy (Verified 09/15/24 13:36)
hallucinating, paranoid
Penicillins Allergy (Verified 09/15/24 13:36)
Unknown
Medications Reviewed: Yes
Current Antibiotics:
Azithromycin
Atovaquone
Social History
Tobacco: Non-Smoker
Alcohol: None
Drug: None
Personal:
Family History
Family History: Not Pertinent
Review of Systems
Review of Systems
General: Fever, Chills and Change in Appetite
HEENT: Negative Sinus Problems, Headache or Pharyngitis
Cardiovascular: Negative Chest Pain
Respiratory: Negative Dyspnea, Cough or Sputum Production
Gasteroenterology: Nausea; Negative Vomiting or Diarrhea
Genital / Urological: Negative Dysuria or Flank Pain
Endocrine: Weakness and Fatigue
Musculoskeletal: Myalgias
Skin / Hair / Nails: Negative Rash
Neurological: Negative Dizziness
All systems: All other systems were reviewed and were negative
Vital Signs
Temp Pulse Resp BP Pulse Ox
98.6 F 72 12 130/68 98
09/16/24 10:56 09/16/24 10:56 09/16/24 10:56 09/16/24 10:56 09/16/24 10:56
Selected Entries
09/15/24
15:34
Temp 100.6 F H
Physical Exam
Physical Exam
Constitutional: No Acute Distress
Eyes: No Conjunctival Hemorrhage and Sclera Anicteric
Cardiovascular: Regular Rate and S1/S2
Pulmonary: Clear
Gastrointestinal: Soft, Non Tender, Non Distended and Normal Bowel Sounds
Genito-Urinary: Negative CVA Tenderness
Extremities: Negative Edema
Skin: Negative Jaundice
Neurological: AO x 3
Lab / Diagnostic Study Results
09/16/24 04:13
09/16/24 04:13
Abs Immat Gran (auto) 0.0 10^3/uL (0-0.05) 09/15/24 13:46
Absolute Neuts (auto) 3.9 10^3/uL (1.4-6.5) 09/15/24 13:46
Absolute Lymphs (auto) 0.6 10^3/uL (1.2-3.4) L 09/15/24 13:46
Absolute Monos (auto) 0.9 10^3/uL (0.1-0.6) H 09/15/24 13:46
Absolute Basos (auto) 0.0 10^3/uL (0-0.2) 09/15/24 13:46
Immature Gran % 0.2 % (0-0.5) 09/15/24 13:46
Neutrophils % 70.2 % (42.2-75.2) 09/15/24 13:46
Lymphocytes % 11.2 % (20.5-51.1) L 09/15/24 13:46
Monocytes % 16.7 % (1.7-9.3) H 09/15/24 13:46
Eosinophils % 1.3 % (0-6) 09/15/24 13:46
Basophils % 0.4 % (0-2) 09/15/24 13:46
Ur Squamous Epith Cells 3-5 /LPF (Few) 09/15/24 13:46
Microbiology Results
Micro:
09/15/24 21:12 Blood Parasites Smear - Final
Blood/Venous Babesia species
09/15/24 21:12 Blood Culture - Pending
Blood/Venous
09/15/24 21:12 Blood Culture - Pending
Blood/Venous
09/15/24 CXR No acute disease of the chest.
Assessment / Plan
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
#Fever
#Leukopenia, thrombocytopenia
#Elevated ALT
-Ordered Lyme screen, Anaplasma/Ehrlichia PCR
- Repeat parasite smear in a.m.
-Agree with azithromycin 500 mg qd and atovaquone 750 mg p.o. q12
- Add doxycycline 100 mg p.o. twice daily for suspected COVID infection
-Trend temps, white count, platelet
Care Review
Plan reviewed with: Physician (Dr. Hidalgo)
[2024-09-16 14:14] VITALS: BP 144/74
[2024-09-16 17:08] LABS: Troponin I 0.013 ng/ml
[2024-09-16 19:20] VITALS: BP 126/64
[2024-09-16] MEDS: VIBRAMYCIN 100 MG PO (20:04)
[2024-09-16 23:08] VITALS: BP 137/81
[2024-09-17 03:15] VITALS: BP 127/67
[2024-09-17] MEDS: NSS 1000 IV (03:22)
--- NOTE | 2024-09-17 05:58 | W.PN.GI.CBS2 ---
Today's Communication / Plan
-
Please see assessment and plan for details.
Assessment / Plan
-
1. 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
2. Dilated intrahepatic ducts: Mildly noted on ultrasound, likely incidental, CT scan without any significant pathology. Will hold on further workup for now.
We will sign off for now, please call back with any further questions.
Subjective
Subjective
Date of Service: September 17, 2024
Patient feeling okay, still having nocturnal fevers, though no severe abdominal pain, vomiting.
Objective
Data Reviewed
Laboratory Data:
Laboratory Results
Total Bilirubin 3.2 mg/dl (0.2-1.3) H 09/16/24 04:13
AST 42 U/L (17-59) 09/16/24 04:13
ALT 53 U/L (0-50) H 09/16/24 04:13
Alkaline Phosphatase 81 U/L (38-126) 09/16/24 04:13
Lipase 286 U/L (23-300) 09/15/24 13:46
Vital Signs and I&O:
Vital Signs
Temp Pulse Resp BP Pulse Ox
97.5 F 56 16 127/67 97
09/17/24 03:15 09/17/24 03:15 09/17/24 03:15 09/17/24 03:15 09/17/24 03:15
I&O
09/15/24 09/16/24 09/17/24
06:59 06:59 06:59
Intake Total 1640 / 1640
Balance 1640 / 1640
Physical Exam
Physical Exam
General: NAD
Abdomen: normal bowel sounds, soft, no tenderness, no masses or bruits, no ascites
[2024-09-17 06:00] VITALS: BMI 22.2
[2024-09-17 06:17] LABS: Hematocrit 41.5 % (39.0-52.0); Hemoglobin 14.2 g/dL (13.0-18.0); Mean Corp Hgb Conc. 34.2 g/dL (33.0-37.0); Mean Corpuscular Volume 87.6 fL (80.0-94.0); Platelet Count 36 10^3/uL (130-400); Red Cell Dist. Width 13.4 % (11.5-14.5)
[2024-09-17 06:31] LABS: ALT (SGPT) 51 U/L (0-50); AST (SGOT) 41 U/L (17-59); Albumin 3.3 g/dl (3.5-5.0); Alkaline Phosphatase 83 U/L (38-126); Blood Urea Nitrogen 23 mg/dl (9-20); Calcium 8.8 mg/dl (8.4-10.2); Carbon Dioxide 27 mmol/L (22-30); Chloride 106 mmol/L (98-107); Estimated Creatinine Clearance 59 ml/min; Glucose 104 mg/dl (70-99); Potassium 4.4 mmol/L (3.5-5.1); Sodium 137 mmol/L (135-145); Total Protein 6.1 g/dl (6.3-8.2); eGFR > 60.00
[2024-09-17 07:36] VITALS: BP 126/68
[2024-09-17] MEDS: MEPRON SUSPENSION 750 MG PO ×2 (07:59→19:24)
[2024-09-17] MEDS: VIBRAMYCIN 100 MG PO ×2 (08:00→19:24)
[2024-09-17] MEDS: ASPIR LOW (ENTERIC COATED) 81 MG PO (08:00)
[2024-09-17] MEDS: PROTONIX 40 MG PO (08:00)
[2024-09-17] MEDS: ZITHROMAX 500 MG PO (08:00)
[2024-09-17] MEDS: NORVASC 10 MG PO (08:01)
[2024-09-17 08:06] LABS: Absolute Neutrophils -Man Diff 2.0 10^3/uL (1.4-6.5); Normal RBC Morphology Yes; Platelets Checked Yes; Total Cells Counted 100
--- NOTE | 2024-09-17 11:32 | W.PN.HOSP.TC ---
Today's Communication/Plan
-
Monitor vitals
See plan
Follow fever curve
Follow smear
Continue with current treatment
Assessment / Plan
Assessment / Plan
Gen-AAOx3, NAD
HEENT-NC, AT, anicteric, clear oral mm
Neck-supple
CV-reg, no M, +S1/S2
Lungs-clear B/L
Abd-soft, NT, ND
Ext-no edema
Musculoskeletal-no edema
Neuro-grossly non-focal
Psych-calm, cooperative
Babesiosis -presentation with malaise, fever and chills, abdominal discomfort, chest discomfort. Leukopenia, thrombocytopenia and indirect hyperbilirubinemia noted. Mild ALT elevation, alkaline phosphatase elevation.
Blood smear with 1.2% parasitemia. Repeat smear 09/17 pending
Abdominal ultrasound with intrahepatic bile duct dilation, mild. CT abdomen with mild diffuse bladder wall thickening. Patient denies any urine symptoms. Per GI no further significant pathology on CT. No further workup needed for dilated
intrahepatic duct
We discussed the importance of tick repellent and longsleeve clothing moving forward to prevent further infections.
Continue with atovaquone, azithromycin doxycycline
ID following
Essential hypertension -blood pressure elevated. Recheck after medications.
CAD/CABG -stable. History of stenting.
Hyperlipidemia -at home he is on atorvastatin, ezetimibe. Currently meds on hold for elevated liver enzymes.
GERD
Full code
Anticipated Discharge: Within 24 hours
Subjective/Interval History
-
Date of Service: September 17, 2024
Denies nausea
Objective Data
-
Labs:
Laboratory Results
09/17/24
05:32
WBC 4.0 L
Hgb 14.2
Hct 41.5
Plt Count 36 L
Sodium 137
Potassium 4.4
Chloride 106
Carbon Dioxide 27
BUN 23 H
Creatinine 1.1
Glucose 104 H
Calcium 8.8
Total Bilirubin 2.2 H
AST 41
ALT 51 H
Alkaline Phosphatase 83
Vital Signs:
Vital Signs
Temp Pulse Resp BP Pulse Ox
97.9 F 71 12 126/68 95
09/17/24 07:36 09/17/24 08:01 09/17/24 07:36 09/17/24 08:01 09/17/24 07:36
I&O
09/16/24 09/17/24 09/18/24
06:59 06:59 06:59
Intake Total 2119
Balance 2119
[2024-09-17 11:38] VITALS: BP 123/65
[2024-09-17 13:31] LABS: Lyme Antibody Screen, EIA Presump. Positive (Negative)
--- NOTE | 2024-09-17 14:58 | W.PN.ID1 ---
Date of Service
Date of Service: September 17, 2024
Today's Communication
Continue antibiotics.
Assessment / Plan
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
#Fever resolved
#Leukopenia, thrombocytopenia
#Elevated ALT, T bili
# Coag Neg staph bacteremia 1 of 2 sets =contaminant
- Lyme screen, Anaplasma/Ehrlichia PCR pending
- 09/17 babesia smear 0.9% parasitemia
- Repeat parasite smear in a.m.
- Continue azithromycin 500 mg qd and atovaquone 750 mg p.o. q12 x 10d 09/25/24
- Continue doxycycline 100 mg p.o. twice daily x 10d through 09/25/24 for suspected co-infection
-Trend temps, white count, platelet
Chief Complaint
-: Other (Babesia)
Subjective / Review of Systems
Feeling improved today.
Vital Signs / Physical Exam
Vital Signs
Vital Signs
Temp Pulse Resp BP Pulse Ox
98.2 F 64 12 123/65 94
09/17/24 11:38 09/17/24 11:38 09/17/24 11:38 09/17/24 11:38 09/17/24 11:38
Physical Exam
Constitutional: No Acute Distress
Eyes: Other (sclera slight icteric)
Cardiovascular: Regular Rate and S1/S2
Pulmonary: Clear
Gastrointestinal: Soft, Non Tender and Non Distended
Genito-Urinary: Negative CVA Tenderness
Extremities: Negative Edema
Neurological: AO x 3
Objective Data
Lab Data
Lab Results
09/17/24 05:32
09/17/24 05:32
Estimated Creat Clear 59 ml/min 09/17/24 05:32
Total Bilirubin 2.2 mg/dl (0.2-1.3) H 09/17/24 05:32
AST 41 U/L (17-59) 09/17/24 05:32
ALT 51 U/L (0-50) H 09/17/24 05:32
Alkaline Phosphatase 83 U/L (38-126) 09/17/24 05:32
Most recent labs reviewed.
Micro Results:
09/15/24 21:12 Blood Culture - Preliminary
Blood/Venous Coagulase neg. staphylococcus
Additional testing on request
Gram Stain - Preliminary
09/17/24 05:32 Blood Parasites Smear - Final
Blood/Venous Babesia species
09/15/24 21:12 Blood Culture - Preliminary
Blood/Venous No Growth in 24 hours- Final report to follow
09/15/24 21:12 Blood Parasites Smear - Final
Blood/Venous Babesia species
09/15/24 CXR No acute disease of the chest.
[2024-09-17 15:20] VITALS: BP 130/67
[2024-09-17 23:04] VITALS: BP 125/64
[2024-09-18 05:42] LABS: Hematocrit 39.0 % (39.0-52.0); Hemoglobin 13.5 g/dL (13.0-18.0); Mean Corp Hgb Conc. 34.6 g/dL (33.0-37.0); Mean Corpuscular Volume 85.7 fL (80.0-94.0); Platelet Count 49 10^3/uL (130-400); Red Cell Dist. Width 13.6 % (11.5-14.5)
[2024-09-18 06:00] VITALS: BMI 22.0
[2024-09-18 06:02] LABS: ALT (SGPT) 45 U/L (0-50); AST (SGOT) 37 U/L (17-59); Albumin 3.3 g/dl (3.5-5.0); Alkaline Phosphatase 88 U/L (38-126); Blood Urea Nitrogen 29 mg/dl (9-20); Calcium 8.7 mg/dl (8.4-10.2); Carbon Dioxide 26 mmol/L (22-30); Chloride 107 mmol/L (98-107); Estimated Creatinine Clearance 59 ml/min; Glucose 110 mg/dl (70-99); Potassium 4.2 mmol/L (3.5-5.1); Sodium 136 mmol/L (135-145); Total Protein 6.0 g/dl (6.3-8.2); eGFR > 60.00
[2024-09-18 07:07] VITALS: BP 111/64
[2024-09-18] MEDS: VIBRAMYCIN 100 MG PO (08:17)
[2024-09-18] MEDS: MEPRON SUSPENSION 750 MG PO (08:17)
[2024-09-18] MEDS: NORVASC 10 MG PO (08:18)
[2024-09-18] MEDS: ZITHROMAX 500 MG PO (08:18)
[2024-09-18] MEDS: ASPIR LOW (ENTERIC COATED) 81 MG PO (08:18)
[2024-09-18] MEDS: PROTONIX 40 MG PO (08:18)
[2024-09-18 08:36] LABS: Absolute Neutrophils -Man Diff 2.7 10^3/uL (1.4-6.5); Normal RBC Morphology Yes; Platelets Checked Yes; Total Cells Counted 100
--- NOTE | 2024-09-18 08:49 | W.PN.ID1 ---
Date of Service
Date of Service: September 18, 2024
Today's Communication
- Continue azithromycin 500 mg qd and atovaquone 750 mg p.o. q12 x 10d 09/25/24
- Continue doxycycline 100 mg p.o. twice daily x 10d through 09/25/24 for suspected co-infection
- Repeat parasite smear, CBC/diff, CMP outpatient on 09/24/24. Script electronic sent to [facility]. Copy provided for patient.
- OK dc home.
Assessment / Plan
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
#Fever resolved
#Leukopenia, thrombocytopenia
#Elevated ALT, T bili
# Coag Neg staph bacteremia 1 of 2 sets =contaminant
- Lyme screen, Anaplasma/Ehrlichia PCR pending
- 09/17 babesia smear 0.9% parasitemia -> 0.4% (09/18/24)
- Continue azithromycin 500 mg qd and atovaquone 750 mg p.o. q12 x 10d 09/25/24
- Continue doxycycline 100 mg p.o. twice daily x 10d through 09/25/24 for suspected co-infection
- Repeat parasite smear, CBC/diff, CMP outpatient on 09/24/24. Script electronic sent to [facility]. Copy provided for patient.
Chief Complaint
-: Other (Babesia)
Subjective / Review of Systems
Feeling better.
Vital Signs / Physical Exam
Vital Signs
Vital Signs
Temp Pulse Resp BP Pulse Ox
97.9 F 63 17 132/64 95
09/18/24 07:07 09/18/24 08:18 09/18/24 07:07 09/18/24 08:18 09/18/24 07:07
Physical Exam
Constitutional: No Acute Distress and Comfortable
Cardiovascular: Regular Rate and S1/S2
Pulmonary: Clear
Gastrointestinal: Soft, Non Tender, Non Distended and Normal Bowel Sounds
Neurological: AO x 3
Objective Data
Lab Data
Lab Results
09/18/24 05:21
09/18/24 05:21
Estimated Creat Clear 59 ml/min 09/18/24 05:21
Total Bilirubin 1.5 mg/dl (0.2-1.3) H 09/18/24 05:21
AST 37 U/L (17-59) 09/18/24 05:21
ALT 45 U/L (0-50) 09/18/24 05:21
Alkaline Phosphatase 88 U/L (38-126) 09/18/24 05:21
Most recent labs reviewed.
Micro Results:
09/18/24 05:21 Blood Parasites Smear - Final
Blood/Venous Babesia species
09/15/24 21:12 Blood Culture - Preliminary
Blood/Venous No Growth in 48 hours- Final report to follow
09/15/24 21:12 Blood Culture - Preliminary
Blood/Venous Coagulase neg. staphylococcus
Additional testing on request
Gram Stain - Preliminary
09/17/24 05:32 Blood Parasites Smear - Final
Blood/Venous Babesia species
09/15/24 21:12 Blood Parasites Smear - Final
Blood/Venous Babesia species
09/15/24 CXR No acute disease of the chest.
Care Review
Plan reviewed with: Physician (Dr. Unger)
--- NOTE | 2024-09-18 10:24 | W.PN.HOSP.TC ---
Addendum entered and electronically signed by Karthik Unger MD 09/19/24 09:10:
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
Original Note:
Today's Communication/Plan
-
Monitor vital signs
see plan
cw abx per ID
dc today
time of discharge 38 minutes
Assessment / Plan
Assessment / Plan
Gen-AAOx3, NAD
HEENT-NC, AT, anicteric, clear oral mm
Neck-supple
CV-reg, no M, +S1/S2
Lungs-clear B/L
Abd-soft, NT, ND
Ext-no edema
Musculoskeletal-no edema
Neuro-grossly non-focal
Psych-calm, cooperative
Babesiosis -presentation with malaise, fever and chills, abdominal discomfort, chest discomfort. Leukopenia, thrombocytopenia and indirect hyperbilirubinemia noted. Mild ALT elevation, alkaline phosphatase elevation.
Blood smear with 1.2% parasitemia. Repeat smear 09/18 noted
Abdominal ultrasound with intrahepatic bile duct dilation, mild. CT abdomen with mild diffuse bladder wall thickening. Patient denies any urine symptoms. Per GI no further significant pathology on CT. No further workup needed for dilated
intrahepatic duct
We discussed the importance of tick repellent and longsleeve clothing moving forward to prevent further infections.
Continue with atovaquone, azithromycin doxycycline; Continue azithromycin 500 mg qd and atovaquone 750 mg p.o. q12 x 10d 09/25/24
- Continue doxycycline 100 mg p.o. twice daily x 10d through 09/25/24 for suspected co-infection
ID following, ID has ordered repeat blood work outpatient
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
Monitor
Essential hypertension -continue with home meds
CAD/CABG -stable. History of stenting.
Hyperlipidemia -at home he is on atorvastatin, ezetimibe. Currently meds on hold for elevated liver enzymes.
GERD
Full code
Anticipated Discharge: Today
Subjective/Interval History
-
Date of Service: September 18, 2024
denies pain
Objective Data
-
Labs:
Laboratory Results
09/18/24
05:21
WBC 4.4 L
Hgb 13.5
Hct 39.0
Plt Count 49 L D
Sodium 136
Potassium 4.2
Chloride 107
Carbon Dioxide 26
BUN 29 H
Creatinine 1.1
Glucose 110 H
Calcium 8.7
Total Bilirubin 1.5 H
AST 37
ALT 45
Alkaline Phosphatase 88
Vital Signs:
Vital Signs
Temp Pulse Resp BP Pulse Ox
97.9 F 63 17 132/64 95
09/18/24 07:07 09/18/24 08:18 09/18/24 07:07 09/18/24 08:18 09/18/24 07:07
I&O
09/17/24 09/18/24 09/19/24
06:59 06:59 06:59
Intake Total 2119 750 / 750
Balance 2119 750 / 750
--- NOTE | 2024-09-18 10:32 | W.DCSUMMARY ---
Discharge Summary
Discharge Data
Date of Admission: 09/15/24
Date of Discharge: 09/18/24
-
Pending Results: Yes
Hospital Course
78-year-old male with past medical history of CAD, CABG, essential hypertension, hyperlipidemia came to the hospital with fever malaise and chills secondary babesiosis. His blood smear was positive. Abdominal ultrasound was done which showed
intrahepatic biliary ductal dilation. Patient was seen by GI who recommended CT scan. CT scan was also done which showed mild diffuse bladder wall thickening however there was limited intrahepatic biliary ductal dilation. Patient was seen by
infectious disease throughout hospitalization. On discharge patient was put on azithromycin, atovaquone, doxycycline. Infectious disease recommended patient to get repeat blood work outpatient. Patient symptoms continue to improve, he was then
discharged home with instructions to follow-up with all his physicians outpatient.
Discharge Plan
-
Patient Disposition: Home (Routine Discharge)
Discharge Diagnosis/Procedures: Babesiosis
Condition: Fair
Diet: As tolerated
Activity: As tolerated
Driving Restrictions: As prior to admission
Bathing Restrictions: None
Activity Restrictions/Additional Instructions:
Follow-up with blood work with infectious disease
Referrals:
Noah See MD [Family Provider, Family Practice] - in less than 1 week
Cesia Harrison MD [Active, Infectious Diseases]
Prescriptions:
New
atovaquone 750 mg/5 mL Suspension
750 mg PO Q12 8 Days Qty: 80 0RF
acetaminophen 325 mg Tablet
650 mg PO Q4HPRN PRN (Reason: Mild Pain / Temp > 101) Qty: 0 0RF
doxycycline hyclate 100 mg Capsule
100 mg PO Q12 8 Days Qty: 16 0RF
azithromycin 500 mg tablet
500 mg PO DAILY 8 Days Qty: 8 0RF
Continued
pantoprazole 40 MG tablet,delayed release (DR/EC)
40 mg PO DAILY Qty: 30 11RF
atorvastatin 80 MG tablet
80 mg PO QPM Qty: 30 11RF
aspirin 81 MG tablet,delayed release (DR/EC)
81 mg PO DAILY Qty: 30 11RF
coenzyme [id number] 1 CAP capsule
1 cap PO DAILY
tadalafil 5 mg Tablet
5 mg PO DAILY PRN (Reason: ED)
amlodipine 5 MG tablet
10 mg PO DAILY
ezetimibe 10 mg Tablet
10 mg PO DAILY
diphenhydramine HCl [Benadryl] 25 mg Capsule
25 mg PO HS PRN (Reason: sleep)
Discharge Orders:
Discharge Patient (As Directed); Ordered 09/18/24
Ordered By: Karthik Ugner
Discharge Date and Time
Discharge Date/Time: 09/18/24 11:24
Print Language: [email or web address]
--- NOTE | 2024-09-18 10:43 | CM ---
Alert awake oriented patient who lives with his SO Ciara who lives in a 1 story home with 2 step to enter. He is independent in driving and in all activities of daily living.He was offered VN he declined need. He agrees with dc today.
No VN hx / No SNF history
Pharmacy [facility]
PCP DR See
PLAN Home Declined VN
[2024-09-18 11:02] VITALS: BP 143/71
--- NOTE | 2024-09-18 15:11 | PN.CDI ---
CDI
- -
CDI:
Physician Documentation Request
Admit Date: 09/15/24 21:18
Dear Doctor Cornel,
Clinical Indicators:
Patient admitted with Babesiosis.
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
WBC, RBC, Plts:
09/18/24
05:21
WBC 4.4 L
RBC 4.55 L
Plt Count 49 L D
Based on the above, could you clarify in the progress notes, the appropriate diagnosis, if significant, that supports the above abnormalities and additional evaluation, monitoring and/or treatment rendered:
Pancytopenia
Thrombocytopenia only
Other, please specify
Use of terms such as suspected, likely, concern for, or probable (associated with a specific diagnosis that is being evaluated, monitored, or treated as if it exists) are acceptable and can be coded in the inpatient setting, when documented at the
time of discharge.
Thank you,
JANETTE Rodriguez RN
CDI Specialist
available via tiger text
Please use your independent medical judgment in providing your response.
[2024-09-20 15:24] LABS: Lyme Ab Western Blot IgG Negative (Negative); Lyme Ab Western Blot IgM Negative (Negative)
== END 2024-09-18 11:24 | disposition home or self-care (01) | DRG 868 ==
LOC: 3 WEST ACU 21:18
PROVIDERS: Hospitalist; ADMITTING PHYSICIAN Hospitalist; ATTENDING PHYSICIAN Internal Medicine; CONSULT PHYSICIAN Internal Medicine Gastroenterology; CONSULT PHYSICIAN Internal Medicine Infectious Disease; EMERGENCY PHYSICIAN Emergency Medicine; FAMILY PHYSICIAN Family Medicine
DX: B60.00 Babesiosis, unspecified (principal); D61.818 Other pancytopenia; R17 Unspecified jaundice; E78.00 Pure hypercholesterolemia, unspecified; N18.30 Chronic kidney disease, stage 3 unspecified; I12.9 Hypertensive chronic kidney disease with stage 1 through stage 4 chronic kidney disease, or unspecified chronic kidney disease; I25.10 Atherosclerotic heart disease of native coronary artery without angina pectoris; K21.9 Gastro-esophageal reflux disease without esophagitis; I45.10 Unspecified right bundle-branch block; D69.6 Thrombocytopenia, unspecified; F40.240 Claustrophobia; R74.8 Abnormal levels of other serum enzymes; R74.01 Elevation of levels of liver transaminase levels; D72.819 Decreased white blood cell count, unspecified; K83.8 Other specified diseases of biliary tract; K59.00 Constipation, unspecified; Z95.5 Presence of coronary angioplasty implant and graft; Z88.0 Allergy status to penicillin; Z88.5 Allergy status to narcotic agent; Z95.1 Presence of aortocoronary bypass graft; Z79.82 Long term (current) use of aspirin
CPT/HCPCS: 71046; 74177; 76700; 80053; 80061; 81003; 81015; 82248; 83615; 83690; 84443; 84484; 85025; 85027; 86617; 86618; 87015; 87040; 87147; 87154; 87205; 87207; 87468; 87484; 87798; 93005; 96361; 96365; 96367; 99285; Q9967

== ENCOUNTER → 2024-09-24 15:06 | Outpatient (REF) | payer MEDICARE, OTHER, SELFPAY ==
[2024-09-24 15:46] LABS: Hematocrit 35.7 % (39.0-52.0); Hemoglobin 12.1 g/dL (13.0-18.0); Mean Corp Hgb Conc. 33.9 g/dL (33.0-37.0); Mean Corpuscular Volume 87.5 fL (80.0-94.0); Nucleated Red Blood Cells % 0 % (-); Platelet Count 213 10^3/uL (130-400); Red Cell Dist. Width 13.4 % (11.5-14.5)
[2024-09-24 16:14] LABS: ALT (SGPT) 50 U/L (0-50); AST (SGOT) 37 U/L (17-59); Albumin 4.1 g/dl (3.5-5.0); Alkaline Phosphatase 94 U/L (38-126); Blood Urea Nitrogen 33 mg/dl (9-20); Calcium 9.1 mg/dl (8.4-10.2); Carbon Dioxide 25 mmol/L (22-30); Chloride 106 mmol/L (98-107); Glucose 97 mg/dl (70-99); Potassium 4.5 mmol/L (3.5-5.1); Sodium 139 mmol/L (135-145); Total Protein 7.1 g/dl (6.3-8.2); eGFR > 60.00
== END ==
LOC: REG 15:06
PROVIDERS: ATTENDING PHYSICIAN Internal Medicine Infectious Disease; FAMILY PHYSICIAN Family Medicine
DX: B60.00 Babesiosis, unspecified (principal)
CPT/HCPCS: 36415; 80053; 85025; 87015; 87207

== ENCOUNTER 2025-02-01 18:34 | Emergency (ER) | payer MEDICARE, OTHER, SELFPAY ==
[2025-02-01 18:35] VITALS: BP 154/71
[2025-02-01 19:01] LABS: Hematocrit 42.9 % (39.0-52.0); Hemoglobin 14.7 g/dL (13.0-18.0); Mean Corp Hgb Conc. 34.3 g/dL (33.0-37.0); Mean Corpuscular Volume 89.4 fL (80.0-94.0); Nucleated Red Blood Cells % 0 % (-); Platelet Count 124 10^3/uL (130-400); Red Cell Dist. Width 11.8 % (11.5-14.5)
[2025-02-01 19:09] LABS: ALT (SGPT) 20 U/L (0-50); AST (SGOT) 23 U/L (17-59); Albumin 3.9 g/dl (3.5-5.0); Alkaline Phosphatase 71 U/L (38-126); Blood Urea Nitrogen 20 mg/dl (9-20); Calcium 9.0 mg/dl (8.4-10.2); Carbon Dioxide 30 mmol/L (22-30); Chloride 99 mmol/L (98-107); Glucose 140 mg/dl (70-99); Potassium 4.3 mmol/L (3.5-5.1); Sodium 134 mmol/L (135-145); Total Protein 6.7 g/dl (6.3-8.2); eGFR 56.23
[2025-02-01 19:18] LABS: COVID-19 Antigen Negative (Negative)
--- NOTE | 2025-02-01 20:24 | ED.GENMED ---
History of Present Illness
General
Chief Complaint: Fever
Time Seen by Provider: 02/01/25 20:02
History of Present Illness
History of Present Illness:
79-year-old male with history of hypertension, hyperlipidemia, CAD, and GERD presents to the emergency department for evaluation of cough, sore throat, and general malaise for the past 4 days. [place] profoundly weak today prompting her to come to the
ED. Had a temperature of 102 Fahrenheit earlier in the day as well. Denies chest pain or shortness of breath. Cough is minimally productive.
Past History
Past History
ED Past Medical History: CAD, GERD, HTN and Hypercholesterolemia; Negative IDDM or NIDDM
ED Past Surgical History: Cardiac (CABG 2011)
Social History
Tobacco: Non-smoker
Alcohol: None
Drug: None
Personal:
Living: with family
Employment: Retired
Family History
Family History: Other (Noncontributory)
Review of Systems
Review of Systems
Allergies reviewed?: Yes
All Other Systems: ROS reviewed and negative except as documented in HPI and ROS
Phy Exam
Physical Exam
Physical Exam:
GEN: Well appearing, NAD, WDWN
HEENT: Oral mucosa moist, no scleral icterus
Cardiac: Regular rate and rhythm, no murmurs
Lung: No respiratory distress, no tachypnea, rhonchi and rales in the left base, otherwise lungs clear
MSK: No gross deformity or injuries
Skin: Good color, no pallor or jaundice, no rashes
Neuro: AO x3, moves all extremities freely
Psych: Calm, cooperative
Course
Orders/Labs/Results
Orders:
Orders
02/01/25 18:45
COVID-19 Antigen Urgent
Source: Nasal Swab
Complete Blood Count/With Diff Urgent
Comprehensive Metabolic Panel Urgent
INF RAPID [Influenza A+B Rapid Molecular] Urgent
MARY Source: Nasal Swab
Specimen Description:
02/01/25 20:04
CR Chest - 2 Views Urgent
Comment:
Reason For Exam: cough
02/01/25 20:25
0.9% Sodium Chloride 1000 ml [Nss] 1,000 ml IV BOLUS
Acetaminophen [Tylenol] 1,000 mg PO NOW STA
CefTRIAXone [Rocephin] 1,000 mg IV NOW STA
02/01/25 21:55
Lactic Acid Q4H
Comment: ON ICE, CANCEL 2ND ORDER IF FIRST LACTIC ACID LEVEL <2
02/02/25 00:18
Azithromycin [Zithromax] 500 mg PO NOW STA
Abnormal Lab Results
02/01/25
18:45
Plt Count 124 L 10^3/uL
(130-400)
MPV 12.1 H fL
(7.4-10.4)
Absolute Neuts (auto) 7.0 H 10^3/uL
(1.4-6.5)
Absolute Lymphs (auto) 0.7 L 10^3/uL
(1.2-3.4)
Absolute Monos (auto) 0.9 H 10^3/uL
(0.1-0.6)
Neutrophils % 80.6 H %
(42.2-75.2)
Lymphocytes % 8.4 L %
(20.5-51.1)
Monocytes % 10.2 H %
(1.7-9.3)
Sodium 134 L mmol/L
(135-145)
Glucose 140 H mg/dl
(70-99)
Total Bilirubin 1.5 H mg/dl
(0.2-1.3)
02/01/25 18:45
02/01/25 18:45
Vital Signs
Initial and Last Documented VS:
Initial Vital Signs
Temp Pulse Resp BP Pulse Ox
99.1 F 91 20 154/71 93
02/01/25 18:35 02/01/25 18:35 02/01/25 18:35 02/01/25 18:35 02/01/25 18:35
Last Documented Vital Signs
Temp Pulse Resp BP Pulse Ox
99.9 F 85 20 134/68 98
02/01/25 23:48 02/01/25 23:48 02/01/25 23:48 02/01/25 23:48 02/01/25 23:48
MDM/Problems Addressed
MDM/Problems Addressed:
Chest x-ray independently interpreted by me reveals a left lower lobe infiltrate consistent with the patient's lung sounds indicating acute pneumonia. He was treated with IV fluids, antipyretics, and IV antibiotics. Observed in the ED for several
hours, able to ambulate under his own power with no hypoxia or increased work of breathing. Will cover him with cefdinir and azithromycin
*Pulse Oximetry
SaO2: 93
Oxygen Mode of Delivery: Room air
Patient hypoxic: no
*Critical Care Note
Total Time (30-74mins, 75-104mins- exclusive of procedures): Not Applicable
ED Attending Note
-
Portions of this chart may have been created with voice recognition software.� Occasional wrong word or��sound alike� substitutions may have occurred due to the inherent limitations of voice recognition software.
Discharge Plan
Departure
Patient Disposition: Home (Routine Discharge)
Date of Disposition: 02/02/25
Time of Disposition: 00:15
Patient with high blood pressure during this ER visit?: No
Discharge Problem:
Community acquired pneumonia
Instructions: Pneumonia in adults - ED (DC)
Prescriptions:
New
cefdinir 300 mg capsule
300 mg PO BID 5 Days Qty: 10 0RF
azithromycin [Zithromax] 250 mg tablet
250 mg PO DAILY 4 Days Qty: 4 0RF
No Action
pantoprazole 40 MG tablet,delayed release (DR/EC)
40 mg PO DAILY Qty: 30 11RF
atorvastatin 80 MG tablet
80 mg PO QPM Qty: 30 11RF
aspirin 81 MG tablet,delayed release (DR/EC)
81 mg PO DAILY Qty: 30 11RF
amlodipine 5 MG tablet
10 mg PO DAILY
ezetimibe 10 mg Tablet
10 mg PO DAILY
diphenhydramine HCl [Benadryl] 25 mg Capsule
25 mg PO HS PRN (Reason: sleep)
acetaminophen 325 mg Tablet
650 mg PO Q4HPRN PRN (Reason: Mild Pain / Temp > 101) Qty: 0 0RF
Referrals:
Noah See MD [Family Provider, Family Practice]
Interventions
Interventions:
*Risk Screen - Suicide Last Done: 02/01/25 18:35
*General Assessment Last Done: 02/01/25 22:15
*ED- Fall Risk Assessment Last Done: 02/01/25 22:15
*ED COVID-19 Vaccine History Last Done: 02/01/25 22:15
*ED Influenza Vaccine History Last Done: 02/01/25 22:15
ED- Neurological Assessment Last Done: 02/01/25 22:15
ED-Skin Assessment Last Done: 02/01/25 22:15
Discharge Date and Time
Print Language: GERMAN
[2025-02-01 21:00] VITALS: BMI 24.1
[2025-02-01] MEDS: ROCEPHIN 1000 MG IV (21:00)
[2025-02-01] MEDS: NSS 1000 IV (21:00)
[2025-02-01] MEDS: TYLENOL 1000 MG PO (21:01)
[2025-02-01 22:14] VITALS: BP 124/65
[2025-02-01 23:48] VITALS: BP 134/68
[2025-02-02] MEDS: ZITHROMAX 500 MG PO (00:22)
== END 2025-02-02 00:30 | disposition home or self-care (01) ==
LOC: EMR 18:34
PROVIDERS: Emergency Medicine; EMERGENCY PHYSICIAN Emergency Medicine; FAMILY PHYSICIAN Family Medicine
DX: J18.9 Pneumonia, unspecified organism (principal); I25.810 Atherosclerosis of coronary artery bypass graft(s) without angina pectoris; I10 Essential (primary) hypertension; E78.00 Pure hypercholesterolemia, unspecified; K21.9 Gastro-esophageal reflux disease without esophagitis; Z79.82 Long term (current) use of aspirin; Z95.1 Presence of aortocoronary bypass graft
CPT/HCPCS: 99284; 96374; 71046; 80053; 83605; 85025; 87502; 87811